=== PATIENT | female | born 1975 | race American Indian/Alaskan Native ===

== ENCOUNTER 2017-01-27 07:14 | Outpatient (CLI) | payer MEDICAID ==
--- NOTE | 2017-01-27 09:38 | Magnetic Resonance Report ---
MRI LUMBAR SPINE WITHOUT CONTRAST INDICATION: Lumbar radiculopathy. COMPARISON: None similar at this institution. FINDINGS: Noncontrast multiplanar and multisequence MRI of the lumbar spine demonstrates normal vertebral body stature, alignment and marrow signal. Normal conus medullaris terminating behind L1-L2. Normal disc heights and signal except for minimal signal loss at L3-L4 disc. Non-aneurysmal abdominal aorta. Normal paraspinal soft tissues. On the obtained axial images: L3-L4 demonstrates slight diffuse disc bulge, greatest/mild focal protrusion left paracentral/foraminal as on axial image 22, series 6. Mild undercutting of neural foramena, left more than right. Annular fissure may also be present as right paracentral on sagittal image 10, series 4. AP thecal sac caliber is 1.2 cm. Remainder levels unremarkable without evidence of spinal stenosis or nerve root compression. CONCLUSION: L3-L4 degenerative changes, as detailed above. Clinical neurologic territorial correlation may also be obtained, as appropriate. Thank you for the opportunity to participate in this patient's care.
== END 2017-01-27 07:15 | disposition home or self-care (01) ==
LOC: MRI 07:14
PROVIDERS: ATTEND Psychiatry & Neurology Neurology
DX: M51.16 Intervertebral disc disorders with radiculopathy, lumbar region (principal); M47.26 Other spondylosis with radiculopathy, lumbar region
CPT/HCPCS: 72148

== ENCOUNTER 2018-01-15 10:34 | Day surgery (SDC) | payer MEDICAID ==
[~2018-01-15 10:34] MED LIST: NACL 0.9% 1000 ML 1,000 ML IV SCH
--- NOTE | 2018-01-15 11:27 | Anesthesia Consultation ---
Anesthesia Consult and Med Hx Date of service: 01/15/18 - Airway Anesthetic Teeth Evaluation: Good ROM Head & Neck: Adequate Mental/Hyoid Distance: Adequate Mallampati Class: Class II Intubation Access Assessment: Probably Good - Pulmonary Exam CTA: Yes - Cardiac Exam Cardiac Exam: RRR - Pre-Operative Health Status ASA Pre-Surgery Classification: ASA2 Proposed Anesthetic Plan: MAC - Pre-Anesthesia Comment Pre-Anesthesia Comments: neuropathy, sciatica - Gastrointestinal Hx Gastroesophageal Reflux Disease: Yes
--- NOTE | 2018-01-15 11:29 | Anesthesia Day of Surgery ---
Anesthesia Day of Surgery - Day of Surgery Patient Examined: Yes Patient H&P Reviewed: Yes Patient is NPO: Yes
[2018-01-15] MEDS ORDERED: WATER FOR IRRIG STERILE IR ONE (13:23)
[2018-01-15] MEDS ORDERED: DILAUDID ONE (13:48)
[2018-01-15] MEDS ORDERED: DIPRIVAN 10 MG/ML IV ONE (13:49)
--- NOTE | 2018-01-15 14:08 | Operative Report ---
Operative Report Operative Report: Date of procedure: 01/15/2018 Procedure: Colonoscopy. Attending physician: Herb Ramirez MD Electricity Trader: Herb Ramirez MD Indication: Patient is a 42-year-old female who presents with progressive constipation with change in bowel habits and recurrent rectal bleeding. The colonoscopy serves to evaluate so that treatment is directed based on the findings. Consent: Informed consent was obtained after advising the patient and family regarding nature of this procedure, its indications, potential benefits as well as possible complications including but not limited to bleeding perforation and adverse reaction to medication, infection as well as other cardiopulmonary complications. An informed written and verbal consent was then obtained after due opportunity was provided for questions and answers. Monitoring: Patient was monitored continuously with pulse oximetry and electrocardiographic recordings as well as blood pressure recordings. Vital signs remained stable throughout this procedure with no untoward events. Preoperative assessment: Patient was assessed immediately prior to this procedure for capacity to tolerate monitored anesthesia care and moderate sedation as well as general anesthesia. Patient's ASA classification is 2, Mallampati class is 2, Hyomental distance is 3. Instrument: Stellarn video colonoscope Medications: Propofol given intravenously in divided doses. For details please refer to anesthesia records. Description of procedure: Patient was placed in the left lateral decubitus position after achieving sedation, a digital rectal examination was performed following which the colonoscope was introduced into the anal verge and advanced to the cecum which was identified by the cecal valve, the appendiceal orifice, as well as by the cecal strap and direct transillumination. The colonoscope was subsequently withdrawn with careful inspection of all mucosal surfaces. Patient tolerated this procedure well and was subsequently taken to the recovery room. The following findings were noted. Findings: Patient had diminutive diverticula involving the sigmoid and descending colon. The rest of the colon to the cecum was normal. On the retroflex view at the anal verge, patient had internal hemorrhoids. Impression: Mild diverticulosis. Internal hemorrhoids. Plan: High-fiber diet. When necessary stool softeners and laxatives. Patient's hemorrhoids were not felt to be prominent enough for her to have hemorrhoidal band ligation
--- NOTE | 2018-01-15 14:09 | Discharge Summary ---
Short Stay Discharge Plan Activity: advance as tolerated Weight Bearing Status: Weight Bear as Tolerated Diet: regular Follow up with: ARIANA BURTON MD [Primary Care Provider] - 7 Days
[2018-01-15] MEDS ORDERED: ZOFRAN ONE (14:26)
[2018-01-15 15:21] VITALS: BP 111/81
== END 2018-01-15 10:35 | disposition home or self-care (01) ==
LOC: GIO 10:34
PROVIDERS: ATTEND Internal Medicine Gastroenterology
DX: K62.5 Hemorrhage of anus and rectum (principal); K59.00 Constipation, unspecified; K64.8 Other hemorrhoids; K57.30 Diverticulosis of large intestine without perforation or abscess without bleeding; K21.9 Gastro-esophageal reflux disease without esophagitis; G62.9 Polyneuropathy, unspecified; M54.30 Sciatica, unspecified side; Z86.010 Personal history of colon polyps; Z79.899 Other long term (current) drug therapy; Z88.8 Allergy status to other drugs, medicaments and biological substances; Z91.013 Allergy to seafood
CPT/HCPCS: 45378; 82962; J1170; J2405; J2704; J7030